=== PATIENT | female | born 1965 | race Two or more races ===

== ENCOUNTER 2018-10-04 08:32 | Outpatient (CLI) | payer OTHER | END 2018-10-04 08:36 | disposition home or self-care (01) | LOC: SONOGRAMA 08:32 | DX: E03.8 Other specified hypothyroidism (principal) ==

== ENCOUNTER 2019-12-16 05:42 | Day surgery (SDC) | payer OTHER ==
[~2019-12-16 05:42] MED LIST: CLONAZEPAM0.25 MG PO; LOSARTAN-HCTZ1 EAC1 PO; SYNTHROID88 MCG PO; TOPROL XL50 M1 PO
[2019-12-16] MEDS ORDERED: COLACE100 MG PO (08:20)
[2019-12-16] MEDS ORDERED: PERCOCET 5-3251 EACH PO (08:20)
== END 2019-12-16 13:45 | disposition home or self-care (01) ==
LOC: CIR.AMB 05:42
PROVIDERS: ATTEND Surgery
DX: K60.3 Anal fistula (principal); K62.4 Stenosis of anus and rectum; Z20.828 Contact with and (suspected) exposure to other viral communicable diseases